=== PATIENT | male | born 1960 | race Caucasian/White ===

== ENCOUNTER 2019-05-03 21:27 | Emergency (ER) | payer OTHER ==
[~2019-05-03] VITALS: Ht 195.6 cm; Wt 118.3 kg
[2019-05-03 21:28] VITALS: BP 124/97
== END 2019-05-03 22:37 ==
LOC: ED 22:31
DX: S29.011A Strain of muscle and tendon of front wall of thorax, initial encounter (principal); S20.212A Contusion of left front wall of thorax, initial encounter; V49.88XA Car occupant (driver) (passenger) injured in other specified transport accidents, initial encounter; Y93.89 Activity, other specified; Y92.89 Other specified places as the place of occurrence of the external cause; Y99.8 Other external cause status
CPT/HCPCS: 71046; 99283